=== PATIENT | female | born 1995 | race Caucasian/White ===

== ENCOUNTER 2019-09-07 20:55 | Emergency (ER) | payer BC ==
[~2019-09-07] VITALS: Ht 177.8 cm; Wt 81.6 kg
[2019-09-07] MEDS ORDERED: IBU600 M1 PO (22:23)
== END 2019-09-07 23:31 | disposition home or self-care (01) ==
LOC: ED 20:55
DX: S93.602A Unspecified sprain of left foot, initial encounter (principal); X50.1XXA Overexertion from prolonged static or awkward postures, initial encounter; Y93.39 Activity, other involving climbing, rappelling and jumping off; Y92.89 Other specified places as the place of occurrence of the external cause; Y99.8 Other external cause status